=== PATIENT | male | born 1960 | race Caucasian/White ===

== ENCOUNTER 2020-11-10 08:54 | Day surgery (SDC) | payer BC, SELFPAY ==
[2020-10-28 10:46] VITALS: BMI 24.7
[2020-11-10 09:49] VITALS: BP 122/64; PULSE 79; RESP 18; TEMP 36.1; O2SAT 95
[2020-11-10 10:10] LABS: MANUAL DIFF FLAG NO
[2020-11-10 10:24] LABS: Basophils Percent Auto 0.9 % (0-2); Eosinophils Absolute Auto 0.1 X10*3/uL (0.0-0.4); Eosinophils Percent Auto 1.5 % (0-4); Hematocrit 53.4 % (42-52); Imm Gran Abs Auto 0.01 X10*3/uL (0.00-0.03); Imm Gran Pct Auto 0.3 % (0.0-0.4); Lymphocytes Absolute Auto 1.3 X10*3/uL (1.2-4.9); Lymphocytes Percent Auto 38.1 % (20-40); Mean Corpuscular HGB Conc 33.7 g/dl (31.0-36.0); Mean Corpuscular Hemoglobin 31.6 pg (27.0-33.0); Mean Corpuscular Volume 93.7 fL (80-98); Mean Platelet Volume 11.3 fL (9.4-12.4); Monocytes Absolute Auto 0.4 X10*3/uL (0.1-1.2); Monocytes Percent Auto 11.7 % (2-11); Neutrophils Absolute Auto 1.6 X10*3/uL (2.0-8.3); Neutrophils Percent Auto 47.5 % (45-73); Platelet Count 191 X10*3/uL (160-400); Red Cell Distribution Width 11.9 % (11.0-16.0); White Blood Count 3.4 X10*3/uL (4.8-10.8)
[2020-11-10 10:49] LABS: Alanine Aminotransferase 28 U/L (0-40); Albumin Level 4.4 g/dL (3.5-5.0); Alkaline Phosphatase 71 U/L (39-117); Anion Gap 13 (12-20); Aspartate Amino Transferase 21 U/L (5-37); Bilirubin Total 0.6 mg/dL (0.0-1.0); Blood Urea Nitrogen 19 mg/dL (9-16); Calcium 9.6 mg/dL (8.4-10.2); Carbon Dioxide 26 mmol/L (22-29); Chloride 106 mmol/L (96-108); Cholesterol 172 mg/dL; Estimated Glomerular Filt Rate > 60; Glucose Fasting 101 mg/dL (60-99); HDL Cholesterol 66 mg/dL; LDL Cholesterol Calculated 95 mg/dl; Potassium 4.7 mmol/l (3.3-5.1); Sodium 140 mmol/L (135-145); Total Protein 7.1 g/dL (6.5-8.0); Triglycerides 55 mg/dL
--- NOTE | 2020-11-10 11:05 | HO.ANESPROP2 ---
[facility] Past Medical History Medical History Seasonal allergies Sinus bradycardia Surgical History Surgical History History of nasal surgery Hx of colonoscopy Hx of hand surgery Social History Social History Are you a primary customer care coordinator to a significant other at home: No Do you presently have visiting nurse or other home services: No Smoking Status: Never smoker Use of substances other than those prescribed or required for medical reasons: No Have you been hit, kicked, punched, or otherwise hurt by someone within the past year? If so, by whom?: No Advance Directives: No Advance Directives Information Provided: No Advance Directives on File: No Recently lost weight without trying: No Meds Allergies Allergy/AdvReac Type Severity Reaction Status Date / Time meperidine [From DEMEROL] Allergy Unknown HIVES, Verified 11/10/20 09:11 SWEATING Home Medications Medication Instructions Recorded Confirmed Type No Known Home Meds 10/28/20 10/28/20 History Exam Exam Date and Time: November 10, 2020 1105 Height,Weight and Vital Signs: Height 5 ft 11 in Weight 80.286 kg Last Vital Signs Temp 97.0 F 11/10/20 09:49 Pulse 79 11/10/20 09:49 Resp 18 11/10/20 09:49 BP 122/64 11/10/20 09:49 Pulse Ox 95 11/10/20 09:49 Pertinent Lab Results Pertinent Lab Results: Laboratory Tests 11/10/20 11/10/20 09:26 09:26 WBC 3.4 L RBC 5.70 Hgb 18.0 Hct 53.4 H MCV 93.7 MCH 31.6 MCHC 33.7 RDW 11.9 Plt Count 191 MPV 11.3 Immature Gran % (Auto) 0.3 Neut % (Auto) 47.5 Lymph % (Auto) 38.1 Clayton % (Auto) 11.7 H Eos % (Auto) 1.5 Baso % (Auto) 0.9 Lymph # (Auto) 1.3 Clayton # (Auto) 0.4 Eos # (Auto) 0.1 Baso # (Auto) 0.0 Abs Immat Gran (auto) 0.01 Absolute Neuts (auto) 1.6 L Absolute Nucleated RBC 0.000 Nucleated RBC % (auto) 0.0 Sodium 140 Potassium 4.7 Chloride 106 Carbon Dioxide 26 Anion Gap 13 BUN 19 H Creatinine 1.02 Estim Creat Clear Calc 81.0 Estimated GFR > 60 Fasting Glucose 101 H Calcium 9.6 Total Bilirubin 0.6 AST 21 ALT 28 Alkaline Phosphatase 71 Total Protein 7.1 Albumin 4.4 Triglycerides 55 Cholesterol 172 LDL Cholesterol, Calc 95 HDL Cholesterol 66 Airway Mallampati Class: II TM Dist: >3cm Neck ROM: Full Loose/Missing/Broken Teeth: No Heart: rrr+s1s2 Lungs: cta b/l Assessment and Plan Assessment Anesthesia Assessment: Anesthesia Plan Discussed and Chart Reviewed Final Anesthetic Review NPO: Yes ASA Class: II Final Preanesthetic Review: No Changes in Pt Med Stat, Meds/Allgs Chart Reviewed, Consent Obtained/Reviewed and Anes Risks/Benef Reviewed Patient Risk: Low Procedure Risk: Low Assessment/Block/Sedation in SS: Assess/Block/Sedation-SS Anesthetic Plan Anesthetic Plan: MAC: Disposition: Standard PACU
[2020-11-10] MEDS: Lactated Ringers 1,000 ML 50 ML IVCONT (11:13)
[2020-11-10 11:53] LABS: Prostate Specific Antigen 1.17 ng/mL (<0.05-4.0)
[2020-11-10 12:16] VITALS: BP 94/66; PULSE 70; RESP 16; TEMP 36.2; O2SAT 96
--- NOTE | 2020-11-10 12:19 | PM.OP ---
Brief Operative Note Date of Service: 11/10/20 Pre-op diagnosis: Screening Post-op diagnosis: other (Colon polyps) Procedure: Colonoscopy to cecum and TI with biopsy and removal of polyps Surgeon: Giancarlo Santos Anesthesia: MAC Estimated blood loss (mL): 3.0 Pathology: other (A. Proximal ascending colon polyp B. Polyp at 20cm) Condition: stable Disposition: other
[2020-11-10 12:32] VITALS: BP 102/71; PULSE 61; RESP 16; O2SAT 97
[2020-11-10 12:42] VITALS: BP 108/69; PULSE 60; RESP 16; O2SAT 97
[2020-11-10 12:50] VITALS: TEMP 36.1
--- NOTE | 2020-11-10 12:54 | OP_ITS ---
SURGEON: Giancarlo Santos MD INDICATIONS: The patient presents for evaluation of colorectal cancer screening and personal history of colon polyps. Full consent has been obtained from him for this, including risks of bleeding and perforation. PREOPERATIVE DIAGNOSIS: POSTOPERATIVE DIAGNOSIS: PROCEDURE PERFORMED: Colonoscopy to cecum and terminal ileum with biopsy and removal of polyps. ESTIMATED BLOOD LOSS: COMPLICATIONS: ANESTHESIA: Monitored anesthesia care. ASSISTANTS: SPECIMENS: PREOPERATIVE DIAGNOSES: Colorectal cancer screening and personal history of colon polyps. POSTOPERATIVE DIAGNOSES: Colorectal cancer screening and personal history of colon polyps, colon polyps, diverticulosis and internal hemorrhoids. DESCRIPTION OF PROCEDURE: The patient was placed in the left lateral decubitus position. The digital rectal exam revealed no abnormalities. The Olympus video pediatric colonoscope was entered into the rectum and advanced easily to the cecum. Once in the cecum, I did identify normal-appearing cecal pouch with appendiceal orifice and a normal-appearing ileocecal valve. The terminal ileum was cannulated and appeared normal. The scope was withdrawn back in the colon. The entire cecum and ileocecal valve appeared normal. The scope was then slowly withdrawn assessing all mucosal surfaces carefully. Preparation was excellent. In the proximal ascending colon was a flat approximately 5 mm polyp, which was biopsied and completely removed with cold biopsy forceps. At 20 cm was a flat probable hyperplastic, approximately 4 mm polyp, which was biopsied and completely removed with cold biopsy forceps. I did not visualize any other polyps, colitis, nor angiodysplasia. There was a mild amount of sigmoid diverticulosis. In the rectum, scope was retroflexed visualizing internal hemorrhoids, but no other pathology. The rectal mucosa appeared normal. The scope was straightened and withdrawn from the patient. He tolerated the procedure well and was returned to the recovery area in stable condition. IMPRESSION: 1. Colon polyps, status post biopsy removal. 2. Diverticulosis. 3. Internal hemorrhoids. PLAN: The results of the biopsies will be checked. I would recommend a repeat colonoscopy in 5 years for further screening and surveillance. He will otherwise see me on a p.r.n. basis. MD IDRIS Morton/SHANNON / [phone]
--- NOTE | 2020-11-10 12:57 | HO.POSTANES ---
Post Anesthesia Evaluation Post Anesthesia Evaluation Vital Signs: Vital Signs Temp Pulse Resp BP Pulse Ox 11/10/20 12:50 97 F 11/10/20 12:42 60 16 108/69 97 11/10/20 12:32 61 16 102/71 97 11/10/20 12:16 97.2 F 70 16 94/66 96 11/10/20 09:49 97.0 F 79 18 122/64 95 Anesthesia: Monitored Mental Status: Awake Pain Control: Satisfactory Nausea/Vomiting: None Hydration: Adequate Anesthesia-Related Issues: No Anes. Related Issues
== END 2020-11-10 13:07 | disposition home or self-care (01) ==
PROVIDERS: PCP Internal Medicine; Visit Provider Internal Medicine
PROC: 0DJD8ZZ Inspection of Lower Intestinal Tract, Via Natural or Artificial Opening Endoscopic (ICD-10-PCS; CPT 45378; principal; 2020-11-10 11:30)
DX: Z12.11 Encounter for screening for malignant neoplasm of colon (principal); Z86.010 Personal history of colon polyps; D12.2 Benign neoplasm of ascending colon; K63.5 Polyp of colon; K57.30 Diverticulosis of large intestine without perforation or abscess without bleeding; K64.8 Other hemorrhoids; R00.1 Bradycardia, unspecified; J30.2 Other seasonal allergic rhinitis; Z79.82 Long term (current) use of aspirin; Z88.8 Allergy status to other drugs, medicaments and biological substances
CPT/HCPCS: 45380; 36415; 80053; 80061; 84153; 85025; 88305

== ENCOUNTER 2020-11-17 17:11 | Outpatient (REF) | payer BC, SELFPAY ==
[2020-11-18 09:38] LABS: Glucose Urine UA NEG (NEG); Leukocyte Esterase Urine NEG (NEG); Nitrite Urine NEG (NEG); PH 6.5 (5.0-8.0); Urine Blood NEG (NEG); Urine Ketones NEG (NEG); Urine Protein NEG (NEG-TRACE)
[2020-11-18 09:39] LABS: Appearance Urine CLEAR; Color Urine YELLOW
== END 2020-11-17 17:12 | disposition home or self-care (01) ==
LOC: HO.LNP 17:11
PROVIDERS: Visit Provider Internal Medicine
DX: Z00.00 Encounter for general adult medical examination without abnormal findings (principal)
CPT/HCPCS: 81003

== ENCOUNTER 2020-11-18 12:43 | Outpatient (REF) | payer BC, SELFPAY | END 2020-11-18 12:44 | disposition home or self-care (01) | LOC: HO.LNP 12:43 | PROVIDERS: Visit Provider Internal Medicine | DX: Z13.89 Encounter for screening for other disorder (principal) ==

== ENCOUNTER 2023-03-28 16:11 | Outpatient (REF) | payer SELFPAY ==
--- NOTE | ~2023-03-28 | XR_ITS ---
EXAMINATION: XR FOOT, RIGHT CLINICAL INFORMATION: Second digit pain. COMPARISON: 10/22/2013 TECHNIQUE: AP, lateral, and oblique views of the right foot. FINDINGS: There is no evidence of acute fracture or dislocation of the right foot. Right foot joint spaces are maintained. There is some mild spurring about the 1st metatarsophalangeal joint. There are some juxta-articular soft tissue calcifications about the ulnar aspects of the 1st, 2nd, and 3rd metatarsophalangeal joints which may be related to acute calcific periarthritis. There appears to be some mild associated soft tissue prominence. Soft tissue calcifications are also seen involving the dorsal aspect of the talar bone anteriorly. Plantar calcaneal spur present. There appears to be some edema about the posterior and plantar aspects of the calcaneus. Some linear calcifications are seen adjacent to the calcaneal spur. XR/XR foot RT min 3V IMPRESSION: Findings consistent with acute calcific periarthritis and tendinosis. No evidence of acute fracture or dislocation.
== END 2023-03-28 16:12 | disposition home or self-care (01) ==
LOC: HO.XRAY 16:11
PROVIDERS: PCP Internal Medicine; Visit Provider Internal Medicine
DX: M79.674 Pain in right toe(s) (principal)
CPT/HCPCS: 73630

== ENCOUNTER 2023-05-23 06:42 | Outpatient (REF) | payer OTHER, SELFPAY ==
[2023-05-23 06:57] LABS: MANUAL DIFF FLAG NO
[2023-05-23 07:18] LABS: Basophils Absolute Auto 0.1 X10*3/uL (0.0-0.2); Eosinophils Absolute Auto 0.1 X10*3/uL (0.0-0.4); Eosinophils Percent Auto 3.1 % (0-4); Hematocrit 47.6 % (42.0-52.0); Hemoglobin 16.2 g/dl (14.0-18.0); Lymphocytes Absolute Auto 1.5 X10*3/uL (1.2-4.9); Lymphocytes Percent Auto 42.2 % (20-40); Mean Corpuscular Hemoglobin 31.2 pg (27.0-33.0); Mean Corpuscular Volume 91.7 fL (80.0-98.0); Mean Platelet Volume 11.2 fL (9.4-12.4); Monocytes Absolute Auto 0.5 X10*3/uL (0.1-1.2); Monocytes Percent Auto 15.4 % (2-11); Neutrophils Absolute Auto 1.3 x10*3/uL (2.0-8.3); Neutrophils Percent Auto 37.3 % (45-73); Platelet Count 177 X10*3/uL (160-400); Red Blood Count 5.19 X10*6/uL (4.60-5.80); Red Cell Distribution Width 12.3 % (11.0-16.0); White Blood Count 3.5 X10*3/uL (4.8-10.8)
[2023-05-23 07:49] LABS: Alanine Aminotransferase 27 U/L (0-40); Albumin Level 4.1 g/dL (3.5-5.0); Alkaline Phosphatase 64 U/L (39-117); Anion Gap 13 (12-20); Aspartate Amino Transferase 22 U/L (5-37); Bilirubin Total 0.7 mg/dL (0.0-1.0); Blood Urea Nitrogen 16 mg/dL (9-16); Calcium 9.7 mg/dL (8.4-10.2); Carbon Dioxide 26 mmol/L (22-29); Chloride 104 mmol/L (96-108); Cholesterol 170 mg/dL; Estimated Glomerular Filt Rate > 60; Glucose Random 88 mg/dL (60-115); HDL Cholesterol 63 mg/dL; LDL Cholesterol Calculated 97 mg/dl; Potassium 4.2 mmol/L (3.3-5.1); Sodium 139 mmol/L (135-145); Triglycerides 50 mg/dL
[2023-05-23 08:07] LABS: Prostate Specific Antigen Scr 1.17 ng/mL (<0.05-4.0)
[2023-05-23 09:08] LABS: Appearance Urine Clear; Color Urine Yellow; Glucose Urine UA Negative (Negative); Leukocyte Esterase Urine Negative (Negative); Nitrite Urine Negative (Negative); PH 6.5 (5.0-9.0); Specific Gravity - Urine 1.015 (1.005-1.025); Urine Blood Negative (Negative); Urine Ketones Negative (Negative); Urine Protein Negative (Neg-Trace)
== END 2023-05-23 06:43 | disposition home or self-care (01) ==
LOC: HO.LAB 06:42
PROVIDERS: PCP Internal Medicine; Visit Provider Internal Medicine
DX: Z00.00 Encounter for general adult medical examination without abnormal findings (principal); Z12.5 Encounter for screening for malignant neoplasm of prostate
CPT/HCPCS: 36415; 80053; 80061; 81003; 84153; 85025

== ENCOUNTER 2024-05-11 09:23 | Outpatient (REF) | payer OTHER, SELFPAY ==
[2024-05-11 09:36] LABS: MANUAL DIFF FLAG NO
[2024-05-11 10:47] LABS: Basophils Absolute Auto 0.1 X10*3/uL (0.0-0.2); Basophils Percent Auto 1.8 % (0-2); Eosinophils Absolute Auto 0.1 X10*3/uL (0.0-0.4); Eosinophils Percent Auto 2.7 % (0-4); Hemoglobin 15.5 g/dl (14.0-18.0); Imm Gran Abs Auto 0.01 X10*3/uL (0.00-0.03); Imm Gran Pct Auto 0.3 % (0.0-0.4); Lymphocytes Absolute Auto 1.3 X10*3/uL (1.2-4.9); Lymphocytes Percent Auto 38.9 % (20-40); Mean Corpuscular HGB Conc 34.4 g/dl (31.0-36.0); Mean Corpuscular Hemoglobin 31.7 pg (27.0-33.0); Mean Platelet Volume 11.9 fL (9.4-12.4); Monocytes Absolute Auto 0.5 X10*3/uL (0.1-1.2); Monocytes Percent Auto 15.1 % (2-11); Neutrophils Absolute Auto 1.4 x10*3/uL (2.0-8.3); Neutrophils Percent Auto 41.2 % (45-73); Platelet Count 159 X10*3/uL (160-400); Red Blood Count 4.89 X10*6/uL (4.60-5.80); Red Cell Distribution Width 12.7 % (11.0-16.0); White Blood Count 3.3 X10*3/uL (4.8-10.8)
[2024-05-11 10:50] LABS: Appearance Urine Clear; Color Urine Yellow; Glucose Urine UA Negative (Negative); Leukocyte Esterase Urine Negative (Negative); Nitrite Urine Negative (Negative); PH 7.5 (5.0-9.0); Specific Gravity - Urine 1.015 (1.005-1.025); Urine Blood Negative (Negative); Urine Ketones Negative (Negative); Urine Protein Negative (Neg-Trace)
[2024-05-11 11:18] LABS: Alanine Aminotransferase 30 U/L (0-40); Alkaline Phosphatase 62 U/L (39-117); Anion Gap 11 (12-20); Aspartate Amino Transferase 22 U/L (5-37); Bilirubin Total 0.5 mg/dL (0.0-1.0); Blood Urea Nitrogen 19 mg/dL (9-16); Calcium 9.6 mg/dL (8.4-10.2); Carbon Dioxide 30 mmol/L (22-29); Chloride 103 mmol/L (96-108); Cholesterol 161 mg/dL (<200); Estimated Glomerular Filt Rate > 60; Glucose Fasting 91 mg/dL (60-99); HDL Cholesterol 57 mg/dL (>40); LDL Cholesterol Calculated 92 mg/dL (<100); Potassium 4.7 mmol/L (3.3-5.1); Sodium 139 mmol/L (135-145); Total Protein 6.8 g/dL (6.5-8.0); Triglycerides 63 mg/dL (<150)
[2024-05-11 11:29] LABS: Prostate Specific Antigen 1.04 ng/mL (<0.05-4.0)
== END 2024-05-11 09:24 | disposition home or self-care (01) ==
LOC: HO.LAB 09:23
PROVIDERS: PCP Internal Medicine; Visit Provider Internal Medicine
DX: N40.0 Benign prostatic hyperplasia without lower urinary tract symptoms (principal); Z82.49 Family history of ischemic heart disease and other diseases of the circulatory system; Z12.5 Encounter for screening for malignant neoplasm of prostate
CPT/HCPCS: 36415; 80053; 80061; 81003; 84153; 85025

== ENCOUNTER 2024-10-19 11:13 | Outpatient (REF) | payer OTHER, SELFPAY ==
[2024-10-19 11:49] LABS: MANUAL DIFF FLAG NO
[2024-10-19 11:54] LABS: Basophils Absolute Auto 0.1 X10*3/uL (0.0-0.2); Basophils Percent Auto 1.7 % (0-2); Eosinophils Absolute Auto 0.1 X10*3/uL (0.0-0.4); Eosinophils Percent Auto 2.2 % (0-4); Hematocrit 44.8 % (42.0-52.0); Hemoglobin 15.8 g/dl (14.0-18.0); Imm Gran Abs Auto 0.01 X10*3/uL (0.00-0.03); Imm Gran Pct Auto 0.2 % (0.0-0.4); Lymphocytes Absolute Auto 1.7 X10*3/uL (1.2-4.9); Lymphocytes Percent Auto 41.2 % (20-40); Mean Corpuscular HGB Conc 35.3 g/dl (31.0-36.0); Mean Corpuscular Volume 90.9 fL (80.0-98.0); Mean Platelet Volume 11.1 fL (9.4-12.4); Monocytes Absolute Auto 0.6 X10*3/uL (0.1-1.2); Monocytes Percent Auto 14.6 % (2-11); Neutrophils Absolute Auto 1.6 x10*3/uL (2.0-8.3); Neutrophils Percent Auto 40.1 % (45-73); Platelet Count 164 X10*3/uL (160-400); Red Blood Count 4.93 X10*6/uL (4.60-5.80); Red Cell Distribution Width 12.6 % (11.0-16.0); White Blood Count 4.1 X10*3/uL (4.8-10.8)
== END 2024-10-19 11:14 | disposition home or self-care (01) ==
LOC: HO.10HDL 11:13
PROVIDERS: Visit Provider Internal Medicine
DX: D72.819 Decreased white blood cell count, unspecified (principal)
CPT/HCPCS: 36415; 85025

== ENCOUNTER 2025-05-18 08:41 | Outpatient (REF) | payer OTHER, SELFPAY ==
[2025-05-18 08:56] LABS: MANUAL DIFF FLAG NO
[2025-05-18 09:10] LABS: Hematocrit 46.4 % (42.0-52.0); Hemoglobin 15.9 g/dl (14.0-18.0); Imm Gran Abs Auto 0.01 X10*3/uL (0.00-0.03); Imm Gran Pct Auto 0.3 % (0.0-0.4); Lymphocytes Absolute Auto 1.2 X10*3/uL (1.2-4.9); Mean Corpuscular HGB Conc 34.3 g/dl (31.0-36.0); Mean Corpuscular Hemoglobin 31.8 pg (27.0-33.0); Mean Corpuscular Volume 92.8 fL (80.0-98.0); NRBC Abs Auto 0.000 X10*3/uL (0.0-0.012); NRBC Pct Auto 0.0 /100WBC (0.0-0.2); Platelet Count 154 X10*3/uL (160-400); Red Blood Count 5.00 X10*6/uL (4.60-5.80); White Blood Count 3.1 X10*3/uL (4.8-10.8)
[2025-05-18 09:48] LABS: Alanine Aminotransferase 28 U/L (0-40); Albumin Level 4.2 g/dL (3.5-5.0); Alkaline Phosphatase 68 U/L (39-117); Anion Gap 12 (12-20); Aspartate Amino Transferase 25 U/L (5-37); Blood Urea Nitrogen 18 mg/dL (9-16); Calcium 9.3 mg/dL (8.4-10.2); Carbon Dioxide 27 mmol/L (22-29); Chloride 104 mmol/L (96-108); Cholesterol 158 mg/dL (<200); Estimated Glomerular Filt Rate > 60; HDL Cholesterol 61 mg/dL (>40); Potassium 4.7 mmol/L (3.3-5.1); Sodium 138 mmol/L (135-145); Total Protein 6.8 g/dL (6.5-8.0); Triglycerides 58 mg/dL (<150)
[2025-05-18 10:00] LABS: Prostate Specific Antigen 1.13 ng/mL (<0.05-4.0)
== END 2025-05-18 08:42 | disposition home or self-care (01) ==
LOC: HO.LAB 08:41
PROVIDERS: PCP Internal Medicine; Visit Provider Internal Medicine
DX: Z13.220 Encounter for screening for lipoid disorders (principal); Z13.228 Encounter for screening for other metabolic disorders; Z12.5 Encounter for screening for malignant neoplasm of prostate; R79.89 Other specified abnormal findings of blood chemistry
CPT/HCPCS: 80053; 80061; 84153; 85025

== ENCOUNTER 2025-07-09 14:18 | Outpatient (AMB) | payer OTHER, SELFPAY ==
--- NOTE | 2025-07-09 14:41 | A.OFFPC_ITS ---
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: No Accompanied by: Self / Same As Patient Allergies meperidine (From DEMEROL) Allergy (Unknown, Verified 07/09/25 14:41) HIVES, SWEATING Medication List - Last Reconciled 07/09/25 by CARLOTTA Devlin sildenafil 100 mg PO DAILY PRN Tobacco use date assessed: 07/09/25 Fall risk assessment: No Falls in past year Last assessed Fall Risk: 07/09/25 Dental Screening Dental Screen Date: 07/09/25 Did you have a dental visit in the last 12 months?: Yes Did you have a dental problem in the last 6 months where you did not have access to dental care?: No Was dental information given to patient?: No HPI HPI Comments History of Present Illness Details 65-year-old male with history of erectil e dysfunction, chronic leukopenia presents to the office today for management of chronic conditions and to establish care. Lives with his girlfriend and feels safe there. 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 No alcohol, hx ETOH use disorder in resmission now. No cigarettes. No illicit drug use including MJ. Exercises often with vigorous hikes/running. Follows a healthy diet overall. Chronic leukopenia-etiology unclear. White blood cell count ranging 3.1-3.6 over the last 6 years. Very mild neutropenia. No known history of autoimmune disease, blood disorders, alcohol use disorder, infection. No night sweats, fevers, unintentional weight loss. Erectile dysfunction-reports he is not experiencing desired effect with sildenafil Concerns: Leukopenia-as above Pain of the right 2nd toe-has a hammertoe that overlaps the great toe. Reports this sometimes limits his exercise Health Maintenance: Last colonoscopy 11/2020, 5 year follow up advised, Dr. Livingston PSA up to date ROS: General: No fevers, malaise, unintentional weight loss HEENT: No blurred vision, diplopia. No sore throat, nasal congestion, rhinorrhea, sinus pain, ear pain. No hearing loss Neck - no adenopathy Cardiovascular: No chest pain, palpitations, or leg edema Respiratory: No shortness of breath, wheezing, cough Heme: See HPI GI: No dysphagia, odynophagia, globus sensation. No abdominal pain, nausea, vomiting, diarrhea, constipation, melena, hematochezia : No dysuria, hematuria, increased urinary frequency, decreased urinary output. No testicular swelling or pain. No penile discharge MSK: No myalgia, back pain, arthralgias. See HPI Neuro: No headaches, weakness, paresthesias Psych: no depression/anxiery. No AH/VH. No SI/HI Skin: No rashes or lesions EXAM: Constitutional - Awake and Alert, No apparent distress Eyes - PERRLA, EOMI. Anicteric Ears - external ears normal, canals clear, TMs intact and pearly barraza with good cone of light Nose- septum midline, nares clear, no sinus tenderness Mouth/throat- mucosa moist, tongue and uvula midline, no erythema/edema or tonsillar adenopathy. Neck-trachea midline, thyroid symmetric without palpable nodules, no adenopathy Cardiovascular - S1S2, RRR, No edema Respiratory - Normal lung expansion, Normal respiratory effort, No respiratory distress, CTA bilaterally Gastrointestinal - NT / ND; +BS; No rebound or guarding - No CVA tenderness Extremities - no calf tenderness bilaterally, no swelling Musculoskeletal - Normal inspection, normal ROM. Hammer toe of R 2nd toe overlapping great toe Skin - Warm/Dry, no concerning lesions Neurological - Alert & oriented x3, CN II-XII in tact, 5/5 strength BUE and BLE, 2+ patellar reflexes, sensation intact Psychological - Appropriate affect hammer toe overlying great toe PFSH Medical History (Updated 07/09/25 @ 17:25 by CARLOTTA Devlin) Septic joint Alcohol use disorder in remission Seasonal allergies Sinus bradycardia Surgical History Hx of colonoscopy (~11/10/23) Hx of hand surgery History of nasal surgery Family History (Updated 07/09/25 @ 15:21 by CARLOTTA Devlin) Father Guillain Gaston? syndrome Mother CAD (coronary artery disease) Alcohol use disorder Social History Housing: House Are you a primary rn care transition to a significant other at home: No Do you presently have visiting nurse or other home services: No Patient Tobacco Use Status: Never used Tobacco e-Cigarette/Vaping Use: Never Used service: No Current occupational status: employed Cognitive needs: No Hearing needs: No Vision needs: No Questionnaire PHQ-9 Over the last 2 weeks, how often have you been bothered by any of the following problems? 1. Little interest or pleasure in doing things: not at all 2. Feeling down, depressed, or hopeless: not at all 3. Trouble falling or staying asleep, or sleeping too much: not at all 4. Feeling tired or having little energy: not at all 5. Poor appetite or overeating: not at all 6. Feeling bad about yourself - or that you are a failure or have let yourself or your family down: not at all 7. Trouble concentrating on things, such as reading the newspaper or watching television: not at all 8. Moving or speaking so slowly that other people could have noticed. Or the opposite - being so fidgety or restless that you have been moving around a lot more than usual: not at all 9. Thoughts that you would be better off or of hurting yourself in some way: not at all Total score: 0 Depression Screening Interpretation: Negative Depression Screening Done: Yes 83763 - PHQ-9 Billing: Yes Source: Developed by Drs. Giancarlo Schwarz, Taylor Garnica, Johnson Cano and colleagues, with an educational ramakrishna from [employer]. Thrive Questionnaire Date Thrive assessed: 07/09/25 I am a: Patient What is your living situation today?: I have a steady place to live Within the past 12 months, did the food you bought not last and you didn't have the money to get more?: Never true Within the past 12 months, did you worry whether your food would run out before you got money to buy more?: Never true Do you have trouble paying for medicines?: No Do you have trouble getting transportation to medical appointments?: No Do you have trouble paying your heating and electricity bill?: No Do you have trouble taking care of your child, family member or friend?: No Do you have trouble with day-to-day activities such as bathing, preparing meals, shopping, managing finances, etc.?: No Are you currently unemployed and looking for a job?: No Are you interested in more education?: No Please select the resources that you would like help with: None THRIVE Score: 0 ALLA-7 AMB Questionnaire ALLA-7 Date ALLA - 7 assessed: 07/09/25 Feeling nervous, anxious, or on edge: 0 = Not at all Not being able to stop or control worryin = Not at all Worrying too much about different things: 0 = Not at all Trouble relaxin = Not at all Being so restless that it is hard to sit still: 0 = Not at all Becoming easily annoyed or irritable: 0 = Not at all Feeling afraid as if something awful might happen: 0 = Not at all Total ALLA-7 score (0-4 normal; 5-9 mild; 10-14 moderate; 15-21 severe): 0 Source: Developed by Drs. Giancarlo Schwarz, Taylor Garnica, Johnson Cano and colleagues, with an educational ramakrishna from [employer]. ALLA-7 Assessment Billing ALLA-7 Assessment Tool: ALLA-7 Assessment 87507 Physical exam (Primary Care) Vital Signs: Last Vital Signs Temp 98.0 F 07/09/25 14:49 Pulse 49 L 07/09/25 14:49 Resp 14 07/09/25 14:49 BP 134/86 07/09/25 15:09 Pulse Ox 96 07/09/25 14:49 Oxygen Delivery Method Room Air 07/09/25 14:49 BMI result Body Mass Index 25.8 Tobacco/Smoking Status: Tobacco use Status Tobacco use date assessed 07/09/25 07/09/25 14:51 Patient Tobacco Use Status Never used Tobacco 07/09/25 14:51 e-Cigarette/Vaping Use Never Used 07/09/25 14:51 PHQ-9: PHQ-9 Score PHQ-9: Total score 0 07/09/25 14:58 Depression Screening Interpretation: Negative Thrive Assessment: Date of Thrive Assessment Date Thrive assessed 07/09/25 07/09/25 14:51 Coding Level of Care Code New Pt Prev Care >65yr (23804) Diagnoses Routine medical exam Z00.00 Leukopenia D72.819 Hammertoe of right foot M20.41 Erectile dysfunction N52.9 Additional Codes ALLA-7 Assessment Billing - ALLA-7 Assessment Tool: ALLA-7 Assessment 15093 ([id number]) PHQ-9 - 45707 - PHQ-9 Billing: Yes ([id number]) Assessment & Plan Assessment & Plan (1) Routine medical exam: Code(s): Z00.00 - Encounter for general adult medical examination without abnormal findings Plan: 65-year-old male presenting for annual physical exam. Plan as below (2) Leukopenia: Code(s): D72.819 - Decreased white blood cell count, unspecified Category: Medical Plan: Chronic but stable. Etiology unclear, no alarm symptoms. Will follow every 6 months (3) Hammertoe of right foot: Code(s): M20.41 - Other hammer toe(s) (acquired), right foot Category: Medical Plan: X-ray of the right foot is ordered and he is referred to Podiatry. Recommend toe separator, and pressure offloading bandage to prevent ulcerations (4) Erectile dysfunction: Code(s): N52.9 - Male erectile dysfunction, unspecified Category: Medical Plan: Discontinue sildenafil. Trial tadalafil. Counseled on dosing Plan Follow-up in the office in 1 year for annual physical exam, sooner if needed Routine screening labs as ordered below Continue with screening colonoscopies and PSA Continue following for annual skin exams and use sun protection Annual eye exams Wear seat belt in car Recommend regular exercise and healthy diet Follow up in 1 year, sooner if needed Orders: Orders XR foot RT 2V Today M20.41 - Other hammer toe(s) (acquired), right foot, M79.671 - Pain in right foot Lipid Panel 1 Year Z00.00 - Encounter for general adult medical examination without abnormal findings Complete Blood Count Auto Diff 1 Year Z00.00 - Encounter for general adult medical examination without abnormal findings Complete Blood Count Auto Diff 6 Months D72.819 - Decreased white blood cell count, unspecified Basic Metabolic Panel 1 Year Z00.00 - Encounter for general adult medical examination without abnormal findings Liver Panel 1 Year Z00.00 - Encounter for general adult medical examination without abnormal findings Prostate Specific Antigen 1 Year Z00.00 - Encounter for general adult medical examination without abnormal findings Referrals Podiatry Referral M20.41 - Other hammer toe(s) (acquired), right foot, M79.261 - Pain in right foot Medications: New tadalafil (Cialis) administer approximately 30min before sexual activity; do not use more than 1 dose per 24hrs 10 mg PO DAILY PRN 14 tabs 3RF sexual activity Discontinued sildenafil Discontinued Reason: Change Referral Type 100 mg PO DAILY PRN 30 tabs 3RF ED
[2025-07-09 14:49] VITALS: BP 140/92; PULSE 49; RESP 14; TEMP 36.7; O2SAT 96; BMI 25.8
[2025-07-09 15:09] VITALS: BP 134/86
--- OUTSIDE RECORDS SUMMARY | 2025-07-09 15:31 | XMS_ITS | Clinical Summary ---
Author Organization [facility] Address [address] [place] [phone] Phone Care Team Providers Care Speech Therapy Assistant Name Role Phone Hasmukh Epps MD Primary Care Provider Allergies No known active allergies Medications No known medications Active Problems No known active problems Immunizations No known immunizations Social History Tobacco Use Types Packs/Day Years Used Date Smoking Tobacco: Never Smokeless Tobacco: Never Alcohol Use Standard Drinks/Week Comments Never 0 (1 standard drink = 0.6 oz pur e alcohol) Education Answer Date Recorded Are you interested in more education? Not on naima e 03/04/2023 Are you concerned about learning? Not on file 03/04/2023 No 03/04/2023 No 03/04/2023 Digital Access Answer Date Recorded No 04/04/2023 No 04/04/2023 No 04/04/2023 Reliable internet access at home? Not on file 04/04/2023 Device with a working camera? Not on file Sex and Gender Information Value Date Recorded Sex Assigned at Not on file Legal Sex Male 2:56 PM EDT Gender Identity Male 06/27/2019 7:52 PM EDT Sexual Orientation Not on file Last Filed Vital Signs Vital Sign Reading Time Taken Comments Blood Pressure 136/86 07/03/2019 12:28 PM EDT Pulse 48 07/03/2019 12:28 PM EDT Temperature 36.5 C (97.7 F) 06/27/2019 8:02 PM EDT Respiratory Rate - - Oxygen Saturation 100% 07/03/2019 12:28 PM EDT Inhaled Oxygen Concentration - - Weight 77.1 kg (170 lb) 07/03/2019 12:28 PM EDT Height 180.3 cm (5' 11 ) 07/03/2019 12:28 PM EDT Body Mass Index 23.71 07/03/2019 12:28 PM EDT Plan of Treatment Health Maintenance Due Date Last Done Comments Adult Td,Tdap Booster 1959 LIPID PANEL 1959 DEPRESSION SCREENING 1971 HEPATITIS C SCREENING 1977 COLOGUARD 2004 COLONOSCOPY 2004 COLORECTAL CANCER SCREENING 2004 FIT TEST 2004 FOBT 2004 SIGMOIDOSCOPY 2004 VIRTUAL COLONOSCOPY 2004 PNEUMOCOCCAL VACCINES (50+ years) (1 of 1 - PCV) 2009 ZOSTER VACCINES (1 of 2) 2009 COVID-19 VACCINE (3 - 2023-2 5 season) 2024 04/28/2021, 04/07/2021 INFLUENZA VACCINE (#1) 2025 RSV VACCINE (1 - 1-dose 75+ series) 2034 SMOKING STATUS SCREENING (On ce After 26 Yrs) Completed 07/03/2019 HEPATITIS A VACCINES Aged Out No long er eligible based on patient's age to complete this topic HIB VACCINES Aged Out No longer eligi ble based on patient's age to complete this topic MENINGOCOCCAL VACCINES (ACWY) Aged Out No longer eligible based on patient's age to complete this topic MENINGOCOCCAL VACCINES (B) Aged Out N o longer eligible based on patient's age to complete this topic Medical Devices Not on file Care Teams Speech Therapy Assistant Relationship Specialty Start Date End Date Hasmukh Epps MD [address] [place] [address] [place] [id number] PCP - General Internal Medicine 06/27/19 Additional Source Comments The information contained in this document represents components of the legal health record. It is not the complete legal health record.[facility]
== END 2025-07-09 16:29 | disposition home or self-care (01) ==
LOC: HO.HMCHD 14:18
PROVIDERS: PCP Internal Medicine; Visit Provider Physician Assistant
DX: Z00.00 Encounter for general adult medical examination without abnormal findings (principal); D72.819 Decreased white blood cell count, unspecified; M20.41 Other hammer toe(s) (acquired), right foot; N52.9 Male erectile dysfunction, unspecified

== ENCOUNTER → 2025-07-09 14:18 | Outpatient (BNVA) | payer OTHER, SELFPAY | PROVIDERS: PCP Internal Medicine; Visit Provider Physician Assistant | DX: Z00.00 Encounter for general adult medical examination without abnormal findings (principal); D72.819 Decreased white blood cell count, unspecified; M20.41 Other hammer toe(s) (acquired), right foot; N52.9 Male erectile dysfunction, unspecified; Z13.31 Encounter for screening for depression; Z13.39 Encounter for screening examination for other mental health and behavioral disorders | CPT/HCPCS: 96127 ==